=== PATIENT | female | born 2005 | race Two or more races ===

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

== ENCOUNTER 2024-04-10 15:11 | Emergency (ER) | payer OTHER ==
[~2024-04-10] VITALS: Ht 165.1 cm; Wt 104.8 kg
[~2024-04-10 15:11] MED LIST changes: +CEPH500C2 PO; +DICY20TA11 PO; +KETO10TA2 PO; +ONDA4TAB11 PO
[2024-04-10 15:23] VITALS: BP 134/67; TEMP 98.5; O2SAT 100
[2024-04-10] MEDS ORDERED: TDAP [DIPH/PERTUSSIS/TET] 0.5 ML VIAL IM ONE (16:03)
[2024-04-10] MEDS: TDAP [DIPH/PERTUSSIS/TET] 0.5 ML VIAL IM ONE (16:04)
== END 2024-04-10 16:13 | disposition home or self-care (01) ==
LOC: ER 15:17
DX: S61.412A Laceration without foreign body of left hand, initial encounter (principal); Z79.899 Other long term (current) drug therapy; Z60.2 Problems related to living alone; Z79.1 Long term (current) use of non-steroidal anti-inflammatories (NSAID)
CPT/HCPCS: 90715

== ENCOUNTER 2024-10-20 19:13 | Emergency (ER) | payer OTHER ==
[~2024-10-20] VITALS: Ht 167.6 cm; Wt 95.3 kg
[2024-10-20 20:12] LABS: BASOPHILS % (AUTO) 0.3 % (0.0-2.0); EOSINOPHILS % (AUTO) 0.5 % (0.0-6.0); HEMATOCRIT 39 % (33-45); HEMOGLOBIN 13.8 g/dL (11.5-14.8); LYMPHOCYTES # (AUTO) 1.3 K/uL (0.8-4.8); LYMPHOCYTES % (AUTO) 14.4 % (20.0-44.0); MEAN CORPUSCULAR HEMOGLOBIN 32 PG (26.0-33.0); MEAN CORPUSCULAR HGB CONC 36 g/dl (31.0-36.0); MEAN CORPUSCULAR VOLUME 89 fL (82-100); MONOCYTES # (AUTO) 0.4 K/uL (0.1-1.30); MONOCYTES % (AUTO) 4.5 % (2.0-12.0); NEUTROPHILS # (AUTO) 7.3 K/uL (1.8-8.9); NEUTROPHILS % (AUTO) 80.3 % (43.0-81.0); PLATELET COUNT (AUTO) 307 K/uL (150-450); RED BLOOD CELL COUNT(AUTO) 4.36 MIL/uL (4.0-5.2); WHITE BLOOD COUNT (AUTO) 9.1 K/uL (4.3-11.0)
[2024-10-20 20:45] LABS: CALCIUM, SERUM 8.6 mg/dL (8.5-10.1)
[2024-10-20] MEDS: KETOROLAC TROMETHAMINE 15 MG/ML VIAL IM ONE (21:00)
[2024-10-20] MEDS ORDERED: KETOROLAC TROMETHAMINE 15 MG/ML VIAL ONE (21:10)
[2024-10-20 21:19] VITALS: BP 136/78; TEMP 98.3; O2SAT 98
== END 2024-10-20 21:19 | disposition home or self-care (01) ==
LOC: ER 19:22
DX: N92.0 Excessive and frequent menstruation with regular cycle (principal); N94.6 Dysmenorrhea, unspecified; R10.2 Pelvic and perineal pain; Z60.2 Problems related to living alone
CPT/HCPCS: 99285; 76856; 96372; 85025; 80048; 36415; 84702; J1885

== ENCOUNTER 2025-01-23 20:41 | Emergency (ER) | payer OTHER ==
[~2025-01-23] VITALS: Ht 175.3 cm; Wt 97.5 kg
[2025-01-23] MEDS ORDERED: diphenhydrAMINE HCL 50 MG/ML VIAL ONE (21:50)
[2025-01-23] MEDS ORDERED: ACETAMINOPHEN ES 500 MG TABLET ONE (21:50)
[2025-01-23] MEDS ORDERED: METOCLOPRAMIDE HCL 10 MG/2 ML VIAL ONE (21:50)
[2025-01-23] MEDS: IV NS 0.9% 1,000 ML BAG IV ONE (22:02)
[2025-01-23] MEDS: ACETAMINOPHEN ES 500 MG TABLET PO ONE (22:02)
[2025-01-23] MEDS: diphenhydrAMINE HCL 50 MG/ML VIAL IV ONE (22:03)
[2025-01-23] MEDS: METOCLOPRAMIDE HCL 10 MG/2 ML VIAL IV ONE (22:03)
[2025-01-23 22:19] LABS: BASOPHILS # (AUTO) 0.1 K/uL (0.0-0.2); BASOPHILS % (AUTO) 0.8 % (0.0-2.0); EOSINOPHILS % (AUTO) 0.5 % (0.0-6.0); HEMATOCRIT 39 % (33-45); HEMOGLOBIN 13.9 g/dL (11.5-14.8); LYMPHOCYTES # (AUTO) 1.1 K/uL (0.8-4.8); LYMPHOCYTES % (AUTO) 15.1 % (20.0-44.0); MEAN CORPUSCULAR HEMOGLOBIN 32 PG (26.0-33.0); MEAN CORPUSCULAR HGB CONC 35 g/dl (31.0-36.0); MEAN CORPUSCULAR VOLUME 89 fL (82-100); MONOCYTES # (AUTO) 0.7 K/uL (0.1-1.30); MONOCYTES % (AUTO) 9.8 % (2.0-12.0); NEUTROPHILS # (AUTO) 5.5 K/uL (1.8-8.9); NEUTROPHILS % (AUTO) 73.8 % (43.0-81.0); PLATELET COUNT (AUTO) 286 K/uL (150-450); RED BLOOD CELL COUNT(AUTO) 4.43 MIL/uL (4.0-5.2); RED CELL DISTRIBUTION WIDTH 12.9 % (11.5-15.0); WHITE BLOOD COUNT (AUTO) 7.5 K/uL (4.3-11.0)
[2025-01-23 22:33] LABS: CALCIUM, SERUM 8.8 mg/dL (8.5-10.1); CREATININE 0.9 mg/dL (0.6-1.3); POTASSIUM 3.7 mmol/L (3.5-5.1)
[2025-01-23 23:12] VITALS: BP 125/71; TEMP 98.6; O2SAT 99
== END 2025-01-23 23:13 | disposition home or self-care (01) ==
LOC: ER 20:43
DX: R53.1 Weakness (principal); R55 Syncope and collapse; Z60.2 Problems related to living alone; Z79.899 Other long term (current) drug therapy
CPT/HCPCS: 99284; 96374; 96361; 93005; 85025; 80048; 36415; J1200; J2765; J7030

== ENCOUNTER 2025-09-05 15:37 | Emergency (ER) | payer OTHER ==
[~2025-09-05] VITALS: Ht 160 cm; Wt 106.6 kg
[2025-09-05 16:30] LABS: PLATELET COUNT (AUTO) 305 K/uL (150-450); RED BLOOD CELL COUNT(AUTO) 4.85 MIL/uL (4.0-5.2); RED CELL DISTRIBUTION WIDTH 13.2 % (11.5-15.0); WHITE BLOOD COUNT (AUTO) 8.2 K/uL (4.3-11.0)
[2025-09-05 16:38] LABS: CALCIUM, SERUM 8.9 mg/dL (8.5-10.1); CREATININE 0.9 mg/dL (0.6-1.3); SODIUM SERUM 139 mmol/L (136-145); UREA NITROGEN, BLOOD 7 mg/dL (7-18)
[2025-09-05 16:51] LABS: PREGNANCY TEST URINE QUAL NEGATIVE (NEGATIVE)
[2025-09-05] MEDS ORDERED: ACET325C7 PO (18:32)
[2025-09-05] MEDS ORDERED: IBUP-1955 PO (18:32)
[2025-09-05 18:36] VITALS: BP 113/82; TEMP 98.8; O2SAT 98
== END 2025-09-05 18:36 | disposition home or self-care (01) ==
LOC: ER 15:45
DX: R07.89 Other chest pain (principal); Z60.2 Problems related to living alone
CPT/HCPCS: 36415; 71045-TC; 80048-TC; 84484-TC; 84703-TC; 85025-TC